=== PATIENT | male | born 1990 | race Caucasian/White ===

== ENCOUNTER 2019-04-13 14:30 | Emergency (ER) | payer BC ==
[2019-04-13] MEDS ORDERED: HYDROcodone/Acetaminophen 5/325 mg Tablet ONE (14:41)
[2019-04-13] MEDS ORDERED: Bacitracin 1 PK ONE ×2 (14:41→15:20)
[2019-04-13] MEDS ORDERED: Adacel (T-DAP) 0.5 ML SYRINGE ONE (14:41)
[2019-04-13] MEDS ORDERED: Lidocaine 1% 20 ML MDV ONE (14:41)
[2019-04-13] MEDS ORDERED: Cephalexin 500 MG CAP ONE (14:43)
== END 2019-04-13 15:38 | disposition home or self-care (01) ==
LOC: MADERS 14:30
DX: S61.212A Laceration without foreign body of right middle finger without damage to nail, initial encounter (principal); S61.214A Laceration without foreign body of right ring finger without damage to nail, initial encounter; S61.216A Laceration without foreign body of right little finger without damage to nail, initial encounter; F17.220 Nicotine dependence, chewing tobacco, uncomplicated; F17.210 Nicotine dependence, cigarettes, uncomplicated; Z23 Encounter for immunization; W31.2XXA Contact with powered woodworking and forming machines, initial encounter
CPT/HCPCS: 12002; 90471; 90715; J2001

== ENCOUNTER 2021-05-04 13:13 | Outpatient (CLI) | payer BC, OTHER ==
[2021-05-04 14:13] LABS: Amphetamine Not Detected (NotDetected); Barbiturates Screen Not Detected (NotDetected); Benzodiazepine Screen Not Detected (NotDetected); Cocaine Metabolite Screen Not Detected (NotDetected); Medtox Control Line Valid? VALID (VALID); Methadone Not Detected (NotDetected); Methamphetamine Not Detected (NotDetected); Opiate Screen Not Detected (NotDetected); Oxycodone Screen Not Detected (NotDetected); Phencyclidine (PCP) Not Detected (NotDetected); THC/Cannabinoid Screen Not Detected (NotDetected); Tricyclic Screen Not Detected (NotDetected)
== END 2021-05-04 13:14 | disposition home or self-care (01) ==
LOC: MADRAD 13:13
PROVIDERS: ATTEND Family Medicine
DX: S69.91XA Unspecified injury of right wrist, hand and finger(s), initial encounter (principal); F90.9 Attention-deficit hyperactivity disorder, unspecified type; F10.10 Alcohol abuse, uncomplicated; S62.626A Displaced fracture of middle phalanx of right little finger, initial encounter for closed fracture
CPT/HCPCS: 80306